=== PATIENT | female | born 1960 | race African-American/Black ===

== ENCOUNTER 2016-12-15 14:33 | Inpatient (IN) | payer OTHER ==
[2016-12-15 15:08] VITALS: BMI 23.4
--- NOTE | 2016-12-15 16:55 | HP ---
COWS - Scale Resting Pulse: 1= [place] 81-100 Sweatin=Flushed/Facial Moisture Restless Observation: 3= Extraneous Movement Pupil Size: 1= Pupils >than Normal Bone or Joint Aches: 2= Severe Diffuse Aches Runny Nose/ Eye Tearin= Runny Nose/Eyes GI Upset > 30mins: 3= Vomiting/Diarrhea Tremor Observation: 2= Slight Tremor Visible Yawning Observation: 2= >3x During Session Anxiety or Irritability: 2=Irritable/Anxious Goose Flesh Skin: 0=Smooth Skin COWS Score: 20 CIWA Score - CIWA Score Nausea/Vomitin Muscle Tremors: 3 Anxiety: 3 Agitation: 3 Paroxysmal Sweats: 2 Orientation: 0-Oriented Tacttile Disturbances: 2-Mild Itch/Numbness/Burn Auditory Disturbances: 2-Mild Harshness/Frighten Visual Disturbances: 2-Mild Sensitivity Headache: 2-Mild CIWA-Ar Total Score: 22 Admission ROS BHS - HPI Chief Complaint: i need help to stop using halina,alcohol Allergies/Adverse Reactions: Allergies Allergy/AdvReac Type Severity Reaction Status Date / Time Penicillins Allergy Severe Rash Verified 11/07/15 17:19 History of Present Illness: this 56 years old female with heroin dependence and alcohol dependence, withdrawal symptom,last detox 11/07/15 to 11/12/15 [facility] asthma cocpd nicotine dependence depression longest period of sobriety Exam Limitations: No Limitations - Ebola screening Have you traveled outside of the country in the last 21 days: No (N) Have you had contact with anyone from an Ebola affected area: No Have you been sick,other than usual withdrawal symptoms: No Do you have a fever: No - Review of Systems Constitutional: Chills, Diaphoresis, Loss of Appetite, Malaise, Night Sweats, Changes in sleep, Weakness, Unexplained wgt Loss EENT: reports: Tearing, Nose Congestion Respiratory: reports: Other (asthma.copd) Cardiac: reports: Palpitations GI: reports: Diarrhea, Nausea, Vomiting, Abdominal cramping : reports: No Symptoms Reported Musculoskeletal: reports: Back Pain, Joint Pain, Muscle Pain Integumentary: reports: Dryness Neuro: reports: Headache, Tremors Endocrine: reports: No Symptoms Reported Hematology: reports: No Symptoms Reported Psychiatric: reports: Depressed Patient History - Patient Medical History Hx Anemia: Yes Hx Asthma: Yes (on albuterol and symbicort) Hx Chronic Obstructive Pulmonary Disease (COPD): Yes Hx Cancer: No Hx Cardiac Disorders: No Hx Congestive Heart Failure: No Hx Hypertension: No Hx Hypercholesterolemia: No Hx Pacemaker: No HX Cerebrovascular Accident: No Hx Seizures: No Hx Dementia: No Hx Diabetes: No Hx Gastrointestinal Disorders: No Hx Liver Disease: No Hx Genitourinary Disorders: No Hx Sexually Transmitted Disorders: No Hx Renal Disease (ESRD): No Hx Human Immunodeficiency Virus (HIV): No Hx Hepatitis C: No Hx Depression: Yes (AND ANXIETY) Hx Suicide Attempt: No Hx Bipolar Disorder: No Hx Schizophrenia: No Other Medical History: no suicidal,no homicidal - Patient Surgical History Past Surgical History: Yes Hx Cardiac Surgery: Yes (with lens implant in 2008.2009) Other Surgical History: Multiple cyst ovary in 2004 Anesthesia Reaction: No - PPD History Previous Implant?: Yes Documented Results: Negative w/o proof Date: 11/09/15 PPD to be Administered?: Yes - Reproductive History Patient is a Female of Child Bearing Age (11 -55 yrs old): No Patient : No - Smoking Cessation Smoking history: Current every day smoker Have you smoked in the past 12 months: Yes Aproximately how many cigarettes per day: 4 Hx Chewing Tobacco Use: No Initiated information on smoking cessation: Yes 'Breaking Loose' booklet given: 12/15/16 - Substance & Tx. History Hx Alcohol Use: Yes Hx Substance Use: Yes Substance Use Type: Alcohol, Cocaine, Heroin Hx Substance Use Treatment: Yes (11/07/15 to 11/12/15 [facility]) - Substances Abused Heroin Route: Inhalation Frequency: Daily Amount used: 5 to 6bags Age of first use: 55 Date of Last Use: 12/15/16 Alcohol Route: Oral Frequency: Daily Amount used: 1pint of vodka Age of first use: 26 Date of Last Use: 12/15/16 Cocaine Route: Inhalation Frequency: 1-3 times last 30 days Amount used: 100$ Age of first use: 26 Date of Last Use: 12/15/16 Family Disease History - Family Disease History Family Disease History: Heart Disease: Mother (HAD CHF AND ), Other: Father () Admission Physical Exam BHS - Vital Signs Vital Signs: Vital Signs - 24 hr 12/15/16 15:07 Temperature 97.2 F L Pulse Rate 81 Respiratory 20 Rate Blood Pressure 147/96 - Physical General Appearance: Yes: Moderate Distress, Tremorous, Irritable, Sweating, Anxious HEENTM: Yes: Normal ENT Inspection, Pharynx Normal, Nasal Congestion, Rhinorrhea Respiratory: Yes: Lungs Clear, Normal Breath Sounds, No Respiratory Distress Neck: Yes: Within Normal Limits Breast: Yes: Breast Exam Deferred Cardiology: Yes: Within Normal Limits, Regular Rhythm, Regular Rate, S1, S2 Abdominal: Yes: Within Normal Limits, Normal Bowel Sounds, Non Tender, Flat, Soft Genitourinary: Yes: Within Normal Limits Back: Yes: Muscle Spasm Musculoskeletal: Yes: full range of Motion, Back pain, Joint Stiffness, Muscle Pain Extremities: Yes: Normal Range of Motion, Tremors 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 intact, Fully Oriented, Alert, Motor Strength 5/5 Integumentary: Yes: Dry Lymphatic: Yes: Within Normal Limits - Diagnostic (1) Asthma Current Visit: No Status: Chronic Qualifiers: Asthma severity: unspecified severity Asthma complication type: uncomplicated Qualified Code(s): J45.909 - Unspecified asthma, uncomplicated (2) Cocaine dependence Current Visit: No Status: Chronic Qualifiers: Substance use status: uncomplicated Qualified Code(s): F14.20 - Cocaine dependence, uncomplicated (3) Opioid dependence with withdrawal Current Visit: Yes Status: Acute (4) COPD (chronic obstructive pulmonary disease) Current Visit: Yes Status: Acute (5) Anxiety and depression Current Visit: No Status: Chronic Cleared for Admission S - Detox or Rehab [facility] Level of Care: Medically Managed Detox Regimen/Protocol: Methadone/Librium S Breath Alcohol Content Breath Alcohol Content: 0 Urine Pregancy Test - Result Urine Test Results: Negative- NO Line Present Urine Drug Screen - Results Drug Screen Negative: No Urine Drug Screen Results: YULY-Cocaine, OPI-Opiates, BZO-Benzodiazepines
[2016-12-15] MEDS ORDERED: diphenhydrAMINE HCL 50 MG CAPSULE PO PRN (17:21)
[2016-12-15] MEDS ORDERED: MAGNESIUM HYDROX 2400MG/30ML ORAL SUSPENSION 30 ML CUP PO PRN (17:21)
[2016-12-15] MEDS ORDERED: LOPERAMIDE HCL 2 MG CAPSULE PO PRN (17:21)
[2016-12-15] MEDS ORDERED: hydrOXYzine PAMOATE 25 MG CAPSULE (FP) PO PRN (17:21)
[2016-12-15] MEDS ORDERED: METHADONE HCL 10 MG TABLET (FOR DETOX USE ONLY) PO ONE ×2 (17:21→23:00)
[2016-12-15] MEDS ORDERED: MAGNESIUM CITRATE 300 ML BOTTLE PO PRN (17:21)
[2016-12-15] MEDS ORDERED: chlordiazePOXIDE HCL 25 MG CAPSULE PO ONE (17:21)
[2016-12-15] MEDS ORDERED: guaiFENesin/D-METHORPHAN HB 10 ML UNIT-DOSE CUPS PO PRN (17:21)
[2016-12-15] MEDS ORDERED: MENTHOL/PHENOL 1 EACH UD MM PRN (17:21)
[2016-12-15] MEDS ORDERED: P-EPHED 60MG/TRIPROLIDI 2.5MG TABLET PO PRN (17:21)
[2016-12-15] MEDS ORDERED: MAG HYDROX/AL HYDROX/SIMETH 30 ML UNIT-DOSE CUP PO PRN (17:21)
[2016-12-15] MEDS ORDERED: chlordiazePOXIDE HCL 25 MG CAPSULE ONE (19:33)
[2016-12-15] MEDS ORDERED: METHADONE HCL 10 MG TABLET (FOR DETOX USE ONLY) ONE (19:34)
[2016-12-15 22:42] LABS: URINE APPEARANCE CLEAR; URINE BILIRUBIN NEGATIVE (NEGATIVE); URINE BLOOD NEGATIVE (NEGATIVE); URINE COLOR YELLOW; URINE GLUCOSE (UA) NEGATIVE (NEGATIVE); URINE KETONE NEGATIVE (NEGATIVE); URINE NITRITE NEGATIVE (NEGATIVE); URINE PROTEIN NEGATIVE (NEGATIVE); URINE UROBILINOGEN 2.0 E.U/dl E.U./dl (0.2-1.0)
[2016-12-15 22:43] LABS: URINE LEUK ESTERASE TRACE (NEGATIVE)
[2016-12-15 22:50] LABS: URINE MUCUS RARE; URINE RBC 2 /hpf (0-3); URINE WBC 2 /hpf (3-5)
[2016-12-15] MEDS: THIAMINE HCL 100 MG TABLET (FP) PO SCH (22:56)
[2016-12-15] MEDS: chlordiazePOXIDE HCL 25 MG CAPSULE PO SCH (22:57)
[2016-12-16] MEDS: BUDESONIDE/FORMETEROL FUMARATE 160/4.5 mcg INHALER IH SCH ×3 (01:42→22:35)
[2016-12-16] MEDS: chlordiazePOXIDE HCL 25 MG CAPSULE PO SCH ×4 (04:19→22:35)
[2016-12-16] MEDS: ALBUTEROL SO4 6.7 GM HFA INHALER IH PRN (04:21)
[2016-12-16] MEDS: IBUPROFEN 400 MG TABLET (FP) PO PRN (09:48)
[2016-12-16] MEDS ORDERED: METHADONE HCL 10 MG TABLET (FOR DETOX USE ONLY) PO SCH (10:00)
[2016-12-16 10:27] LABS: ALBUMIN 3.3 g/dl (3.4-5.0); CALCIUM 8.9 mg/dL (8.5-10.1)
[2016-12-16 10:29] LABS: BILIRUBIN,TOTAL 0.3 mg/dL (0.2-1.0); TOT PROT 6.1 g/dl (6.4-8.2)
[2016-12-16 10:33] LABS: MCH 29.3 pg (25.7-33.7); MCHC 32.5 g/dl (32.0-36.0); MEAN CELL VOLUME 90.3 fl (80-96); MEAN PLT VOLUME 10.7 fl (7.5-11.1); PLATELET COUNT 105 K/MM3 (134-434); RDW 15.1 % (11.6-15.6); WHITE BLOOD COUNT 5.5 K/mm3 (4.0-10.0)
[2016-12-16] MEDS: PRENATAL VITAMINS W/ FOLIC ACID TABLET (FP) PO SCH (11:03)
--- NOTE | 2016-12-16 13:37 | PN ---
S CIWA - CIWA Score Nausea/Vomitin Muscle Tremors: 3 Anxiety: 3 Agitation: 3 Paroxysmal Sweats: 1-Minimal Palms Moist Orientation: 1-Uncertain about Date Tacttile Disturbances: 1-Very Mild Itch/Numbness Auditory Disturbances: 1-Very Mild Visual Disturbances: 1-Very Mild Sensitivity Headache: 2-Mild CIWA-Ar Total Score: 19 BHS COWS - Scale Resting Pulse: 0= [place] 80 or Below Sweatin=Flushed/Facial Moisture Restless Observation: 3= Extraneous Movement Pupil Size: 1= Pupils >than Normal Bone or Joint Aches: 2= Severe Diffuse Aches Runny Nose/ Eye Tearin= Runny Nose/Eyes GI Upset > 30mins: 3= Vomiting/Diarrhea Tremor Observation of Outstretched Hands: 2= Slight Tremor Visible Yawning Observation: 1= 1-2x During Session Anxiety or Irritability: 2=Irritable/Anxious Goose Flesh Skin: 0=Smooth Skin COWS Score: 18 S Progress Note (SOAP) Subjective: ALERT,IRRIABLE,ANXIOUS,INTERRUPTED SLEEP,TREMOR,PIN IN THE BODY AND BACK Objective: 12/16/16 13:36 12/16/16 13:42 Vital Signs Temperature 98.1 F 12/16/16 10:54 Pulse Rate 76 12/16/16 10:54 Respiratory Rate 18 12/16/16 10:54 Blood Pressure 102/59 12/16/16 10:54 O2 Sat by Pulse Oximetry (%) EKG NSR Assessment: 12/16/16 13:43 Laboratory Last Values WBC 5.5 K/mm3 (4.0-10.0) 12/16/16 07:45 RBC 4.02 M/mm3 (3.60-5.2) 12/16/16 07:45 Hgb 11.8 GM/dL (10.7-15.3) 12/16/16 07:45 Hct 36.3 % (32.4-45.2) 12/16/16 07:45 MCV 90.3 fl (80-96) 12/16/16 07:45 MCHC 32.5 g/dl (32.0-36.0) 12/16/16 07:45 RDW 15.1 % (11.6-15.6) 12/16/16 07:45 Plt Count 105 K/MM3 (134-434) L 12/16/16 07:45 MPV 10.7 fl (7.5-11.1) 12/16/16 07:45 Sodium 141 mmol/L (136-145) 12/16/16 07:45 Potassium 4.2 mmol/L (3.5-5.1) 12/16/16 07:45 Chloride 103 mmol/L (98-107) 12/16/16 07:45 Carbon Dioxide 30 mmol/L (21-32) 12/16/16 07:45 Anion Gap 8 (8-16) 12/16/16 07:45 BUN 12 mg/dL (7-18) D 12/16/16 07:45 Creatinine 1.0 mg/dL (0.55-1.02) 12/16/16 07:45 Creat Clearance w eGFR 57.56 (>60) 12/16/16 07:45 Random Glucose 103 mg/dL (74-106) D 12/16/16 07:45 Calcium 8.9 mg/dL (8.5-10.1) 12/16/16 07:45 Total Bilirubin 0.3 mg/dL (0.2-1.0) D 12/16/16 07:45 AST 37 U/L (15-37) D 12/16/16 07:45 ALT 28 U/L (12-78) D 12/16/16 07:45 Alkaline Phosphatase 89 U/L (45-117) D 12/16/16 07:45 Total Protein 6.1 g/dl (6.4-8.2) L 12/16/16 07:45 Albumin 3.3 g/dl (3.4-5.0) L 12/16/16 07:45 Urine Color Yellow 12/15/16 22:30 Urine Appearance Clear 12/15/16 22:30 Urine pH 6.0 (5.0-8.0) 12/15/16 22:30 Ur Specific [place] 1.027 (1.001-1.035) 12/15/16 22:30 Urine Protein Negative (NEGATIVE) 12/15/16 22:30 Urine Glucose (UA) Negative (NEGATIVE) 12/15/16 22:30 Urine Ketones Negative (NEGATIVE) 12/15/16 22:30 Urine Blood Negative (NEGATIVE) 12/15/16 22:30 Urine Nitrite Negative (NEGATIVE) 12/15/16 22:30 Urine Bilirubin Negative (NEGATIVE) 12/15/16 22:30 Urine Urobilinogen 2.0 e.u/dl E.U./dl (0.2-1.0) H 12/15/16 22:30 Ur Leukocyte Esterase Trace (NEGATIVE) H D 12/15/16 22:30 Urine RBC 2 /hpf (0-3) 12/15/16 22:30 Urine WBC 2 /hpf (3-5) 12/15/16 22:30 Ur Epithelial Cells Rare /hpf (FEW) 12/15/16 22:30 Urine Mucus Rare 12/15/16 22:30 RPR Titer Nonreactive (NONREACTIVE) 12/16/16 07:45 12/16/16 13:43 12/16/16 13:43 WITHDRAWAL SYMPTOM Plan: CONTINUE DETOX
[2016-12-16] MEDS: LIDOCAINE 5% TOPICAL PATCH TP SCH (14:20)
[2016-12-16] MEDS: ACETAMINOPHEN 325 MG TABLET (FP) PO PRN (14:20)
[2016-12-16] MEDS: THIAMINE HCL 100 MG TABLET (FP) PO SCH (22:34)
[2016-12-16] MEDS: CYCLOBENZAPRINE HCL 10 MG TABLET (FP) PO PRN (22:34)
[2016-12-17] MEDS: chlordiazePOXIDE HCL 25 MG CAPSULE PO SCH ×3 (05:52→17:16)
[2016-12-17] MEDS: PRENATAL VITAMINS W/ FOLIC ACID TABLET (FP) PO SCH (10:25)
[2016-12-17] MEDS: METHADONE HCL 5 MG TABLET (FOR DETOX USE ONLY) PO SCH (10:25)
[2016-12-17] MEDS: BUDESONIDE/FORMETEROL FUMARATE 160/4.5 mcg INHALER IH SCH ×2 (10:25→22:46)
[2016-12-17] MEDS: LIDOCAINE 5% TOPICAL PATCH TP SCH (10:26)
[2016-12-17] MEDS: CYCLOBENZAPRINE HCL 10 MG TABLET (FP) PO PRN ×2 (10:28→22:46)
--- NOTE | 2016-12-17 10:56 | PN ---
[facility] CIWA - CIWA Score Nausea/Vomitin-No Nausea/No Vomiting Muscle Tremors: 4-Moderate,w/Arms Extend Anxiety: 3 Agitation: 4-Moderately Restless Paroxysmal Sweats: 3 Orientation: 0-Oriented Tacttile Disturbances: 0-None Auditory Disturbances: 0-None Visual Disturbances: 0-None Headache: 1-Very Mild CIWA-Ar Total Score: 15 BHS COWS - Scale Resting Pulse: 0= [place] 80 or Below Sweatin=Flushed/Facial Moisture Restless Observation: 1= Difficult to Sit Still Pupil Size: 0= Normal to Room Light Bone or Joint Aches: 2= Severe Diffuse Aches Runny Nose/ Eye Tearin= Runny Nose/Eyes GI Upset > 30mins: 1= Stomach Cramp Tremor Observation of Outstretched Hands: 2= Slight Tremor Visible Yawning Observation: 2= >3x During Session Anxiety or Irritability: 2=Irritable/Anxious Goose Flesh Skin: 0=Smooth Skin COWS Score: 14 S Progress Note (SOAP) Subjective: muscle cramping sweats shakes headache body aches irritable Objective: 12/17/16 10:55 Vital Signs Temperature 97.5 F L 12/17/16 06:00 Pulse Rate 61 12/17/16 06:00 Respiratory Rate 18 12/17/16 06:00 Blood Pressure 124/74 12/17/16 06:00 O2 Sat by Pulse Oximetry (%) Laboratory Tests 12/15/16 12/16/16 12/16/16 22:30 07:45 07:45 WBC 5.5 RBC 4.02 Hgb 11.8 Hct 36.3 MCV 90.3 MCHC 32.5 RDW 15.1 Plt Count 105 L MPV 10.7 Sodium 141 Potassium 4.2 Chloride 103 Carbon Dioxide 30 Anion Gap 8 BUN 12 D Creatinine 1.0 Creat Clearance w eGFR 57.56 Random Glucose 103 D Calcium 8.9 Total Bilirubin 0.3 D AST 37 D ALT 28 D Alkaline Phosphatase 89 D Total Protein 6.1 L Albumin 3.3 L Urine Color Yellow Urine Appearance Clear Urine pH 6.0 Ur Specific [place] 1.027 Urine Protein Negative Urine Glucose (UA) Negative Urine Ketones Negative Urine Blood Negative Urine Nitrite Negative Urine Bilirubin Negative Urine Urobilinogen 2.0 e.u/dl H Ur Leukocyte Esterase Trace H D Urine RBC 2 Urine WBC 2 Ur Epithelial Cells Rare Urine Mucus Rare RPR Titer 12/16/16 07:45 WBC RBC Hgb Hct MCV MCHC RDW Plt Count MPV Sodium Potassium Chloride Carbon Dioxide Anion Gap BUN Creatinine Creat Clearance w eGFR Random Glucose Calcium Total Bilirubin AST ALT Alkaline Phosphatase Total Protein Albumin Urine Color Urine Appearance Urine pH Ur Specific [place] Urine Protein Urine Glucose (UA) Urine Ketones Urine Blood Urine Nitrite Urine Bilirubin Urine Urobilinogen Ur Leukocyte Esterase Urine RBC Urine WBC Ur Epithelial Cells Urine Mucus RPR Titer Nonreactive awake/alert ambulating no acute distress Assessment: 12/17/16 10:56 withdrawal sx Plan: continue detox increase fluids labs pending
--- NOTE | 2016-12-17 12:27 | CONSULT ---
[facility] Psychiatric Consult - Data Date of interview: 12/17/16 Admission source: [facility] Identifying data: Readmission to [facility] for this 56 y/o AA female seeking detox treatment for alcohol,cocaine and heroin dependence.Patient is single without children,domiciled,unemployed and supported on [facility] benefits. Substance Abuse History: - Smoking Cessation. Smoking history: Current every day smoker. Have you smoked in the past 12 months: Yes. Aproximately how many cigarettes per day: 4. Hx Chewing Tobacco Use: No. Initiated information on smoking cessation: Yes. 'Breaking Loose' booklet given: 12/15/16. - Substance & Tx. History. Hx Alcohol Use: Yes. Hx Substance Use: Yes. Substance Use Type : Alcohol, Cocaine, Heroin. Hx Substance Use Treatment: Yes (11/07/15 to [facility]). - Substances Abused. Heroin. Route: Inhalation. Frequency: Daily. Amount used: 5 to 6bags. Age of first use: 55. Date of Last Use: 12/15. Alcohol. Route: Oral. Frequency: Daily. Amount used: 1pint of vodka. Age of first use: 26. Date of Last Use: 12/15/16. Cocaine. Route: Inhalation. Frequency: 1-3 times last 30 days. Amount used: 100$. Age of first use: 26. Date of Last Use: 12/15/16. Confirmed by patient. Medical History: Bronchial asthma,COPD and history of ophtalmic surgery (lens implant in both eyes). Psychiatric History: No history of psychiatric hospitalizations.Diagnosed with MDD.Prescribed gabapentin,citalopram and clonazepam.Ms Neal reports current outpatient contact with the [facility] in [place], [place].No history of suicide attempts. Physical/Sexual Abuse/Trauma History: Patient denies. Additional Comment: Urine Drug Screen Results: YULY-Cocaine, OPI-Opiates, BZO- Benzodiazepines.Noted. Mental Status Exam - Mental Status Exam Alert and Oriented to: Time, Place, Person Cognitive Function: Good Patient Appearance: Well Groomed (wearing eyeglasses) Mood: Nervous, Withdrawn, Anxious Affect: Normal Range Patient Behavior: Fatigued, Appropriate, Cooperative Speech Pattern: Clear, Appropriate Voice Loudness: Normal Thought Process: Goal Oriented Thought Disorder: Not Present Hallucinations: Denies Suicidal Ideation: Denies Homicidal Ideation: Denies Insight/Judgement: Poor Sleep: Fair Appetite: Good Muscle strength/Tone: Normal Gait/Station: Normal Psychiatric Findings - Problem List ([place] 1, 2,3) (1) Opioid dependence with withdrawal Current Visit: Yes Status: Acute (2) Cocaine dependence Current Visit: Yes Status: Acute Qualifiers: Substance use status: uncomplicated Qualified Code(s): F14.20 - Cocaine dependence, uncomplicated (3) Alcohol dependence Current Visit: Yes Status: Acute (4) Nicotine dependence Current Visit: Yes Status: Acute (5) Substance induced mood disorder Current Visit: Yes Status: Acute (6) Depressive disorder Current Visit: Yes Status: Suspected (7) COPD (chronic obstructive pulmonary disease) Current Visit: Yes Status: Acute (8) Asthma Current Visit: Yes Status: Chronic Qualifiers: Asthma severity: unspecified severity Asthma complication type: uncomplicated Qualified Code(s): J45.909 - Unspecified asthma, uncomplicated - Initial Treatment Plan Initial Treatment Plan: Psychoeducation.Detoxification.Medications : citalopram 10 mg po daily.Side effects/benefits discussed with the patient.She agrees to follow this plan of care.Observation.
[2016-12-17] MEDS: chlordiazePOXIDE HCL 25 MG CAPSULE PO PRN (13:40)
[2016-12-17] MEDS: IBUPROFEN 400 MG TABLET (FP) PO PRN (15:29)
[2016-12-17] MEDS: chlordiazePOXIDE 5 MG CAPSULE PO SCH (22:46)
[2016-12-17] MEDS: THIAMINE HCL 100 MG TABLET (FP) PO SCH (22:46)
[2016-12-17] MEDS: ACETAMINOPHEN 325 MG TABLET (FP) PO PRN (22:50)
[2016-12-18] MEDS: chlordiazePOXIDE HCL 25 MG CAPSULE PO PRN (01:12)
[2016-12-18] MEDS: IBUPROFEN 400 MG TABLET (FP) PO PRN ×2 (01:12→14:38)
[2016-12-18] MEDS: chlordiazePOXIDE 5 MG CAPSULE PO SCH ×3 (05:52→17:05)
[2016-12-18] MEDS: ALBUTEROL SO4 6.7 GM HFA INHALER IH PRN (05:57)
[2016-12-18] MEDS ORDERED: CITALOPRAM HYDROBROMIDE 10 MG TABLET (FP) PO SCH (10:00)
[2016-12-18] MEDS: LIDOCAINE 5% TOPICAL PATCH TP SCH (10:20)
[2016-12-18] MEDS: BUDESONIDE/FORMETEROL FUMARATE 160/4.5 mcg INHALER IH SCH ×2 (10:20→22:20)
[2016-12-18] MEDS: CITALOPRAM HYDROBROMIDE 10 MG TABLET (FP) PO SCH (10:20)
[2016-12-18] MEDS: PRENATAL VITAMINS W/ FOLIC ACID TABLET (FP) PO SCH (10:20)
[2016-12-18] MEDS: METHADONE HCL 5 MG TABLET (FOR DETOX USE ONLY) PO SCH (10:20)
--- NOTE | 2016-12-18 11:14 | PN ---
BHS Progress Note (SOAP) Subjective: tired , sweats lbp-rt leg pain Assessment: 12/18/16 11:13 Vital Signs Temperature 96.8 F L 12/18/16 10:56 Pulse Rate 73 12/18/16 10:56 Respiratory Rate 18 12/18/16 10:56 Blood Pressure 111/72 12/18/16 10:56 O2 Sat by Pulse Oximetry (%) Laboratory Tests 12/15/16 12/16/16 12/16/16 22:30 07:45 07:45 WBC 5.5 RBC 4.02 Hgb 11.8 Hct 36.3 MCV 90.3 MCHC 32.5 RDW 15.1 Plt Count 105 L MPV 10.7 Sodium 141 Potassium 4.2 Chloride 103 Carbon Dioxide 30 Anion Gap 8 BUN 12 D Creatinine 1.0 Creat Clearance w eGFR 57.56 Random Glucose 103 D Calcium 8.9 Total Bilirubin 0.3 D AST 37 D ALT 28 D Alkaline Phosphatase 89 D Total Protein 6.1 L Albumin 3.3 L Urine Color Yellow Urine Appearance Clear Urine pH 6.0 Ur Specific [place] 1.027 Urine Protein Negative Urine Glucose (UA) Negative Urine Ketones Negative Urine Blood Negative Urine Nitrite Negative Urine Bilirubin Negative Urine Urobilinogen 2.0 e.u/dl H Ur Leukocyte Esterase Trace H D Urine RBC 2 Urine WBC 2 Ur Epithelial Cells Rare Urine Mucus Rare RPR Titer 12/16/16 07:45 WBC RBC Hgb Hct MCV MCHC RDW Plt Count MPV Sodium Potassium Chloride Carbon Dioxide Anion Gap BUN Creatinine Creat Clearance w eGFR Random Glucose Calcium Total Bilirubin AST ALT Alkaline Phosphatase Total Protein Albumin Urine Color Urine Appearance Urine pH Ur Specific [place] Urine Protein Urine Glucose (UA) Urine Ketones Urine Blood Urine Nitrite Urine Bilirubin Urine Urobilinogen Ur Leukocyte Esterase Urine RBC Urine WBC Ur Epithelial Cells Urine Mucus RPR Titer Nonreactive pt aox3 in nad lying in bed 12/18/16 11:13 withdrawal sx's Plan: cont. detox increase fluids motrin prn
[2016-12-18] MEDS: CYCLOBENZAPRINE HCL 10 MG TABLET (FP) PO PRN (14:38)
[2016-12-18] MEDS: THIAMINE HCL 100 MG TABLET (FP) PO SCH (22:21)
[2016-12-18] MEDS: chlordiazePOXIDE HCL 10 MG CAPSULE PO SCH (22:22)
--- NOTE | 2016-12-18 23:40 | EKG ---
Test Reason : Blood Pressure : / mmHG Vent. Rate : 093 BPM Atrial Rate : 093 BPM P-R Int : 144 ms QRS Dur : 086 ms QT Int : 374 ms P-R-T Axes : 065 043 024 degrees QTc Int : 465 ms NORMAL SINUS RHYTHM POSSIBLE LEFT ATRIAL ENLARGEMENT BORDERLINE ECG NO PREVIOUS ECGS AVAILABLE Confirmed by DARON LEMUS, MATHIEU ([id number]) on 12/18/2016 11:39:41 PM Referred By: Confirmed By:MATHIEU NERI MD
[2016-12-19] MEDS: chlordiazePOXIDE HCL 10 MG CAPSULE PO SCH ×2 (05:35→10:35)
[2016-12-19] MEDS ORDERED: METHADONE HCL 10 MG TABLET (FOR DETOX USE ONLY) PO SCH (10:00)
[2016-12-19 10:03] VITALS: BP 117/72; PULSE 79; TEMP 98.1
[2016-12-19] MEDS: CITALOPRAM HYDROBROMIDE 10 MG TABLET (FP) PO SCH (10:35)
[2016-12-19] MEDS: BUDESONIDE/FORMETEROL FUMARATE 160/4.5 mcg INHALER IH SCH (10:35)
[2016-12-19] MEDS: PRENATAL VITAMINS W/ FOLIC ACID TABLET (FP) PO SCH (10:35)
[2016-12-19] MEDS: LIDOCAINE 5% TOPICAL PATCH TP SCH (10:37)
--- NOTE | 2016-12-19 11:08 | DS ---
[facility] Detox Discharge Summary Admission Date: 12/15/16 Discharge Date: 12/19/16 - History Present History: Alcohol Dependence, Cannabis Dependence, Cocaine Dependence, Opioid Dependence - Physical Exam Results Vital Signs: Vital Signs Temperature 98.1 F 12/19/16 10:03 Pulse Rate 79 12/19/16 10:03 Respiratory Rate 18 12/19/16 10:03 Blood Pressure 117/72 12/19/16 10:03 O2 Sat by Pulse Oximetry (%) - Treatment Hospital Course: Detox Protocol Followed, Detoxed Safely, Responded well, Discharged Condition Good, Rehab Referral Accepted - Medication Discharge Medications: Ambulatory Orders Albuterol Sulfate Inhaler - [Ventolin Hfa Inhaler -] 2 inh PO Q4H PRN 11/07/15 Citalopram Hydrobromide [Citalopram HBr] 10 mg PO DAILY #30 tablet 12/17/16 - Diagnosis (1) Alcohol dependence Current Visit: Yes Status: Chronic Qualifiers: Substance use status: uncomplicated Qualified Code(s): F10.20 - Alcohol dependence, uncomplicated (2) COPD (chronic obstructive pulmonary disease) Current Visit: Yes Status: Chronic (3) Cocaine dependence Current Visit: Yes Status: Chronic Qualifiers: Substance use status: uncomplicated Qualified Code(s): F14.20 - Cocaine dependence, uncomplicated (4) Nicotine dependence Current Visit: Yes Status: Chronic Qualifiers: Nicotine product type: cigarettes Substance use status: uncomplicated Qualified Code(s): F17.210 - Nicotine dependence, cigarettes, uncomplicated (5) Opioid dependence with withdrawal Current Visit: Yes Status: Chronic (6) Substance induced mood disorder Current Visit: Yes Status: Acute (7) Asthma Current Visit: Yes Status: Chronic Qualifiers: Asthma severity: unspecified severity Asthma complication type: uncomplicated Qualified Code(s): J45.909 - Unspecified asthma, uncomplicated (8) Depressive disorder Current Visit: Yes Status: Suspected (9) Substance-induced anxiety disorder Current Visit: No Status: Acute (10) Substance-induced sleep disorder Current Visit: No Status: Acute (11) Anxiety and depression Current Visit: No Status: Chronic (12) Cannabis dependence Current Visit: Yes Status: Chronic - AMA Did Patient Leave Against Medical Advice: No
[2016-12-20] MEDS ORDERED: METHADONE HCL 5 MG TABLET (FOR DETOX USE ONLY) PO SCH (06:00)
== END 2016-12-19 11:40 | disposition home or self-care (01) | DRG 773 ==
LOC: YASAS 14:33 → Y6N 17:38
PROVIDERS: ADMIT Internal Medicine; ATTEND Internal Medicine Addiction Medicine
PROC: HZ2ZZZZ Detoxification Services for Substance Abuse Treatment (ICD-10-PCS; principal; 2016-12-15)
DX: F11.23 Opioid dependence with withdrawal (principal); F10.230 Alcohol dependence with withdrawal, uncomplicated; F14.20 Cocaine dependence, uncomplicated; F12.20 Cannabis dependence, uncomplicated; F17.210 Nicotine dependence, cigarettes, uncomplicated; F19.24 Other psychoactive substance dependence with psychoactive substance-induced mood disorder; F19.282 Other psychoactive substance dependence with psychoactive substance-induced sleep disorder; F19.280 Other psychoactive substance dependence with psychoactive substance-induced anxiety disorder; F32.9 Major depressive disorder, single episode, unspecified; F41.8 Other specified anxiety disorders; J45.909 Unspecified asthma, uncomplicated; J44.9 Chronic obstructive pulmonary disease, unspecified; Z86.2 Personal history of diseases of the blood and blood-forming organs and certain disorders involving the immune mechanism
CPT/HCPCS: 36415; 80053; 81003; 81015; 85027; 86593; 93005; 93010

== ENCOUNTER 2019-10-09 10:27 | Inpatient (IN) | payer OTHER ==
[2019-10-09 10:49] VITALS: BMI 25.2
--- NOTE | 2019-10-09 11:17 | HP ---
"COWS - Scale Resting Pulse: 1= MS 81-100 Sweatin=Flushed/Facial Moisture Restless Observation: 5= Unable to Sit Still Pupil Size: 0= Normal to Room Light Bone or Joint Aches: 2= Severe Diffuse Aches Runny Nose/ Eye Tearin= Runny Nose/Eyes GI Upset > 30mins: 0= None Tremor Observation: 0= None Yawning Observation: 0= None Anxiety or Irritability: 2=Irritable/Anxious Goose Flesh Skin: 0=Smooth Skin COWS Score: 14 CIWA Score - Admission Criteria OASAS Guidelines: Admission for Medically Managed Detox: Requires at least one of the followin. CIWA greater than 12 2. Seizures within the past 24 hours 3. Delirium tremens within the past 24 hours 4. Hallucinations within the past 24 hours 5. Acute intervention needed for co occurring medical disorder 6. Acute intervention needed for co occurring psychiatric disorder 7. Severe withdrawal that cannot be handled at a lower level of care (continued vomiting, continued diarrhea, abnormal vital signs) requiring intravenous medication and/or fluids 8. Admitting History and Physical - Smoking History Smoking history: Current every day smoker Have you smoked in the past 12 months: Yes Aproximately how many cigarettes per day: 4 - Alcohol/Substance Use Hx Alcohol Use: Yes Admission ROS S - HPI Allergies/Adverse Reactions: Allergies Allergy/AdvReac Type Severity Reaction Status Date / Time Penicillins Allergy Severe Rash Verified 10/09/19 10:37 History of Present Illness: 59 y.o female requesting detox from heroin etoh use heroin 3-4 bags/day , latest use this morning , illicit Methadone use 10 mg yesterday , use of heroin x 3 years . etoh 4 days /week - 7 days /week 1/2 pint, reports anxiety if not drinking , denies seizures, blackouts, tremors. cocaine - latest use on Saturday cannabis- occasional use tobacco : 3 cigs/day PMHX : ASthma / COPD , expl lap , sarah eye implants, R CTS , depression denies SI / [place] no children shx lives alone Search Terms: alvaro lester, 1960 Search Date: 10/09/2019 11:44:23 AM The Drug Utilization Report below displays all of the controlled substance prescriptions, if any, that your patient has filled in the last twelve months. The information displayed on this report is compiled from pharmacy submissions to the Department, and accurately reflects the information as submitted by the pharmacies. This report was requested by: Di Ford | Reference #: [id number] There are no results for the search terms that you entered. Exam Limitations: Clinical Condition - Ebola screening Have you traveled outside of the country in the last 21 days: No Have you had contact with anyone from an Ebola affected area: No Do you have a fever: No - Review of Systems Constitutional: Loss of Appetite EENT: reports: See HPI, Other (glasses bifocals) Respiratory: reports: See HPI (asthma - hosp February / March) Cardiac: reports: No Symptoms Reported GI: reports: Diarrhea, Nausea, Poor Appetite : reports: No Symptoms Reported Musculoskeletal: reports: See HPI Integumentary: reports: No Symptoms Reported Neuro: reports: Headache Endocrine: reports: No Symptoms Reported Hematology: reports: No Symptoms Reported Psychiatric: reports: Orientated x3, Agitated, Anxious, Depressed Patient History - Patient Medical History Hx Anemia: Yes Hx Asthma: Yes (on albuterol and symbicort) Hx Chronic Obstructive Pulmonary Disease (COPD): Yes Hx Cancer: No Hx Cardiac Disorders: No Hx Congestive Heart Failure: No Hx Hypertension: No Hx Hypercholesterolemia: No Hx Pacemaker: No HX Cerebrovascular Accident: No Hx Seizures: No Hx Dementia: No Hx Diabetes: No Hx Gastrointestinal Disorders: No Hx Liver Disease: No Hx Genitourinary Disorders: No Hx Sexually Transmitted Disorders: No Hx Renal Disease (ESRD): No Hx Human Immunodeficiency Virus (HIV): No Hx Hepatitis C: No Hx Depression: Yes (AND ANXIETY) Hx Suicide Attempt: No Hx Bipolar Disorder: No Hx Schizophrenia: No - Patient Surgical History Past Surgical History: Yes Hx Neurologic Surgery: No Hx Cataract Extraction: No Hx Cardiac Surgery: Yes (with lens implant in 2008.2009) Hx Lung Surgery: No Hx Breast Surgery: No Hx Breast Biopsy: No Hx Abdominal Surgery: No Hx Appendectomy: No Hx Cholecystectomy: No Hx Genitourinary Surgery: No Hx Section: No Hx Orthopedic Surgery: No Other Surgical History: Multiple cyst ovary in 2004 Anesthesia Reaction: No - PPD History Date: 12/17/16 - Smoking Cessation Smoking history: Current every day smoker Have you smoked in the past 12 months: Yes Aproximately how many cigarettes per day: 4 Hx Chewing Tobacco Use: No Initiated information on smoking cessation: Yes 'Breaking Loose' booklet given: 10/09/19 - Substances abused Alcohol Substance route: Oral Frequency: Daily Amount used: 1 pint of vodka Age of first use: 24 Date of last use: 10/09/19 Heroin Substance route: Inhalation Frequency: Daily Amount used: 3-4 bags Age of first use: 57 Date of last use: 10/08/19 Cocaine Substance route: Inhalation Frequency: 3-6 times per week Amount used: 1 gram Age of first use: 21 Date of last use: 10/06/19 Admission Physical Exam BHS - Vital Signs Vital Signs: Vital Signs - 24 hr 10/09/19 10:36 Temperature 98.5 F Pulse Rate 95 H Respiratory 20 Rate Blood Pressure 142/80 - Physical General Appearance: Yes: Moderate Distress, Irritable, Sweating, Anxious HEENTM: Yes: EOMI, Hearing grossly Normal, Normocephalic, Normal Voice Respiratory: Yes: Chest Non-Tender, Lungs Clear, Normal Breath Sounds, No Respiratory Distress, No Accessory Muscle Use Neck: Yes: No masses,lesions,Nodules, Trachea in good position Cardiology: Yes: Regular Rhythm, Regular Rate, S1, S2, Tachycardia, Other (QTc 465 ms 12/15/2016 per pt has seen cardiology August 2019 , and was told to continue current meds .) Abdominal: Yes: Non Tender, Soft Musculoskeletal: Yes: full range of Motion, Gait Steady Extremities: Yes: Normal Range of Motion, Non-Tender Neurological: Yes: Fully Oriented, Alert, Motor Strength 5/5, Depressed Affect Integumentary: Yes: Warm - Diagnostic (1) Nicotine dependence Current Visit: Yes Status: Chronic Qualifiers: Nicotine product type: cigarettes Substance use status: uncomplicated Qualified Code(s): F17.210 - Nicotine dependence, cigarettes, uncomplicated (2) Opioid dependence with withdrawal Current Visit: Yes Status: Chronic Breathalyzer - Breathalyzer Breathalyzer: 0.018 Urine Drug Screen - Test Device Lot number: [id number] Expiration date: 04/15/21 - Control Is test valid?: Yes - Results Drug screen NEGATIVE: No Urine drug screen results: THC-Marijuana, MTD-Methadone Inpatient Rehab Admission - Rehab Decision to Admit Inpatient rehab admission?: No"
[2019-10-09] MEDS ORDERED: GABAPENTIN 400 MG CAPSULE PO PRN (11:27)
[2019-10-09] MEDS ORDERED: ALBUTEROL SO4 HFA INHALER IH PRN (11:27)
[2019-10-09] MEDS ORDERED: ACETAMINOPHEN 325 MG TABLET (FP) PO PRN ×2 (11:33)
[2019-10-09] MEDS ORDERED: MAGNESIUM CITRATE 300 ML BOTTLE PO PRN (11:33)
[2019-10-09] MEDS ORDERED: MAG HYDROX/AL HYDROX/SIMETH 30 ML UNIT-DOSE CUP PO PRN (11:33)
[2019-10-09] MEDS ORDERED: METHOCARBAMOL 500 MG TABLET PO PRN (11:33)
[2019-10-09] MEDS ORDERED: MAGNESIUM HYDROX 2400MG/30ML ORAL SUSPENSION 30 ML CUP PO PRN (11:33)
[2019-10-09] MEDS ORDERED: MENTHOL/PHENOL 1 EACH UD MM PRN (11:33)
[2019-10-09] MEDS ORDERED: BISMUTH SUBSALICYLATE 262 MG/15 ML BTL PO PRN (11:33)
[2019-10-09] MEDS ORDERED: IBUPROFEN 400 MG TABLET (FP) PO PRN (11:33)
[2019-10-09] MEDS ORDERED: hydrOXYzine PAMOATE 25 MG CAPSULE (FP) PO PRN (11:33)
[2019-10-09] MEDS ORDERED: cloNIDine HCL 0.1 MG TABLET PO PRN (11:35)
[2019-10-09] MEDS ORDERED: ALBUTEROL SO4 0.083% IH SOL 2.5 MG/3 ML VIAL.NEB. NEB PRN (11:45)
[2019-10-09] MEDS ORDERED: METHADONE HCL 10 MG TABLET (FOR DETOX USE ONLY) PO ONE (12:30)
[2019-10-09] MEDS ORDERED: diazePAM 5 MG TABLET PO ONE (12:31)
[2019-10-09] MEDS: NICOTINE 7 MG/24 HOURS TOPICAL PATCH TD SCH (12:59)
[2019-10-09] MEDS ORDERED: diazePAM 5 MG TABLET PO SCH (14:00)
[2019-10-09 14:27] LABS: HEMATOCRIT 41.2 % (32.4-45.2); HEMOGLOBIN 13.5 GM/dL (10.7-15.3); MCH 30.4 pg (25.7-33.7); MCHC 32.9 g/dl (32.0-36.0); MEAN CELL VOLUME 92.5 fl (80-96); MEAN PLT VOLUME 10.3 fl (7.5-11.1); PLATELET COUNT 160 K/MM3 (134-434); RBC 4.45 M/mm3 (3.60-5.2); WHITE BLOOD COUNT 5.2 K/mm3 (4.0-10.0)
[2019-10-09 15:26] LABS: ALBUMIN 4.2 g/dl (3.4-5.0); BILIRUBIN,TOTAL 0.3 mg/dL (0.2-1); CALCIUM 9.4 mg/dL (8.5-10.1); POTASSIUM 3.4 mmol/L (3.5-5.1); TOT PROT 7.4 g/dl (6.4-8.2)
[2019-10-09] MEDS: ROSUVASTATIN CA 20 MG TABLET (FP) PO SCH (21:02)
[2019-10-09] MEDS: BUDESONIDE/FORMETEROL FUMARATE 160/4.5 mcg INHALER IH SCH (21:03)
[2019-10-09] MEDS: THIAMINE HCL 100 MG TABLET (FP) PO SCH (21:03)
[2019-10-09] MEDS: diazePAM 5 MG TABLET PO SCH (21:03)
[2019-10-09] MEDS: MELATONIN 5 MG TABLETS PO PRN (21:04)
[2019-10-10] MEDS: diazePAM 5 MG TABLET PO PRN ×2 (02:36→18:25)
[2019-10-10] MEDS: diazePAM 5 MG TABLET PO SCH ×3 (05:42→22:47)
[2019-10-10] MEDS ORDERED: METHADONE HCL 5 MG TABLET (FOR DETOX USE ONLY) PO ONE (10:00)
[2019-10-10] MEDS: ASPIRIN 81 MG CHEWABLE TABLETS PO SCH (10:14)
[2019-10-10] MEDS: PRENATAL VITAMINS W/ FOLIC ACID TABLET (FP) PO SCH (10:14)
[2019-10-10] MEDS: BUDESONIDE/FORMETEROL FUMARATE 160/4.5 mcg INHALER IH SCH ×2 (10:15→22:51)
[2019-10-10] MEDS: NICOTINE 7 MG/24 HOURS TOPICAL PATCH TD SCH (10:15)
[2019-10-10] MEDS: TIOTROPIUM BROMIDE 2.5 MCG (SPIRIVA) RESPIMAT INHALER IH SCH (10:15)
--- NOTE | 2019-10-10 10:16 | CONSULT ---
[facility] Psychiatric Consult - Data Date of interview: 10/10/19 Admission source: [facility] Identifying data: Patient is a 59 year old female, without children, unemployed, domiciled, and is supported by public assistance. This is one of multiple admissions for patient. Patient admitted to for alcohol, cocaine, and opiate dependence. Substance Abuse History: Smoking Cessation. Smoking history: Current every day smoker. Have you smoked in the past 12 months: Yes. Aproximately how many cigarettes per day: 4. Hx Chewing Tobacco Use: No. Initiated information on smoking cessation: Yes. 'Breaking Loose' booklet given: 10/09/19. - Substances abused. Alcohol. Substance route: Oral. Frequency: Daily. Amount used: 1 pint of vodka. Age of first use: 24. Date of last use: . Heroin. Substance route: Inhalation. Frequency: Daily. Amount used: 3 -4 bags. Age of first use: 57. Date of last use: 10/08/19. Cocaine. Substance route: Inhalation. Frequency: 3-6 times per week. Amount used: 1 gram. Age of first use: 21. Date of last use: 10/06/19 Medical History: ASthma / COPD , expl lap , sarah eye implants Psychiatric History: Patient denies history of psychiatric hospitalizations and suicide attempt. Patient has been receiving outpatient psychiatric care for three years at the [facility] in [place]. She is currently prescribed Celexa 20mg HS + Buspar 30mg BID. Patient brought her medications to facility. Diagnosis of MDD and Anxiety disorder. At present she reports difficulty sleeping. Physical/Sexual Abuse/Trauma History: denies. Mental Status Exam - Mental Status Exam Alert and Oriented to: Time, Place, Person Cognitive Function: Good Patient Appearance: Well Groomed Mood: Euthymic Affect: Appropriate Patient Behavior: Appropriate, Cooperative Speech Pattern: Appropriate Voice Loudness: Normal Thought Process: Intact, Goal Oriented Thought Disorder: Not Present Hallucinations: Denies Suicidal Ideation: Denies Homicidal Ideation: Denies Insight/Judgement: Poor Sleep: Poorly Appetite: Fair Muscle strength/Tone: Normal Gait/Station: Normal Psychiatric Findings - Problem List ([place] 1, 2,3) (1) Opioid dependence with withdrawal Current Visit: Yes Status: Acute (2) Alcohol dependence Current Visit: Yes Status: Chronic Qualifiers: Substance use status: uncomplicated Qualified Code(s): F10.20 - Alcohol dependence, uncomplicated (3) Anxiety disorder Current Visit: Yes Status: Acute (4) Substance induced mood disorder Current Visit: Yes Status: Acute (5) Depressive disorder Current Visit: Yes Status: Chronic - Initial Treatment Plan Initial Treatment Plan: Psychoeducation provided. Detoxification in progress. Will order Celexa 20 +buspar 30mg BID. Benefits and side effects discussed. Verbal consent given.
[2019-10-10] MEDS: LIDOCAINE 5% TOPICAL PATCH TP SCH (12:39)
--- NOTE | 2019-10-10 17:30 | PN ---
BHS COWS - Scale Resting Pulse: 1= [place] 81-100 Sweatin= Chills/Flushing Restless Observation: 1= Difficult to Sit Still Pupil Size: 0= Normal to Room Light Bone or Joint Aches: 0= None Runny Nose/ Eye Tearin= Nasal Congestion GI Upset > 30mins: 0= None Tremor Observation of Outstretched Hands: 2= Slight Tremor Visible Yawning Observation: 1= 1-2x During Session Anxiety or Irritability: 2=Irritable/Anxious Goose Flesh Skin: 0=Smooth Skin COWS Score: 9 BHS Progress Note (SOAP) Subjective: Anxious, Body Aches, Sweating, Insomnia. Objective: PATIENT A & O X 3, OBSERVED AMBULATING ON DETOX UNIT UNASSISTED. IN NO ACUTE DISTRESS. 10/10/19 17:31 Vital Signs Temperature 98.4 F 10/10/19 10:00 Pulse Rate 84 10/10/19 10:00 Respiratory Rate 18 10/10/19 10:00 Blood Pressure 128/93 10/10/19 10:00 O2 Sat by Pulse Oximetry (%) Laboratory Tests 10/09/19 10/09/19 10/09/19 12:05 12:05 12:05 WBC 5.2 RBC 4.45 Hgb 13.5 Hct 41.2 MCV 92.5 MCH 30.4 MCHC 32.9 RDW 14.0 Plt Count 160 D MPV 10.3 Sodium 143 Potassium 3.4 L Chloride 111 H Carbon Dioxide 19 L Anion Gap 14 BUN 17.0 Creatinine 1.0 Est GFR (CKD-EPI)AfAm 71.92 Est GFR (CKD-EPI)NonAf 62.05 Random Glucose 105 Calcium 9.4 Total Bilirubin 0.3 AST 15 ALT 26 Alkaline Phosphatase 97 Total Protein 7.4 Albumin 4.2 RPR Titer Nonreactive LABS NOTED. Assessment: 10/10/19 17:32 WITHDRAWAL SYMPTOMS. HYPOKALEMIA. Plan: CONTINUE DETOX. K-DUR, 20 MEQ ORALLY BID FOR LOW K LEVEL NOTED ON DETOX ADMISSION LABORATORY ASSESSMENT.
[2019-10-10] MEDS: POTASSIUM CHLORIDE TABS 20 MEQ TABLET.ER (FP) PO SCH (18:21)
[2019-10-10] MEDS: ROSUVASTATIN CA 20 MG TABLET (FP) PO SCH (22:47)
[2019-10-10] MEDS: CITALOPRAM HYDROBROMIDE 20 MG TABLET PO SCH (22:48)
[2019-10-10] MEDS: THIAMINE HCL 100 MG TABLET (FP) PO SCH (22:48)
[2019-10-10] MEDS: LIDOCAINE PATCH REMOVAL MC SCH (22:49)
[2019-10-10] MEDS: MELATONIN 5 MG TABLETS PO PRN (22:50)
[2019-10-11] MEDS: diazePAM 5 MG TABLET PO SCH ×2 (05:59→17:08)
[2019-10-11] MEDS ORDERED: diazePAM 5 MG TABLET PO SCH (06:00)
[2019-10-11] MEDS: POTASSIUM CHLORIDE TABS 20 MEQ TABLET.ER (FP) PO SCH ×2 (09:32→17:08)
[2019-10-11] MEDS: ASPIRIN 81 MG CHEWABLE TABLETS PO SCH (09:33)
[2019-10-11] MEDS: LIDOCAINE 5% TOPICAL PATCH TP SCH (09:34)
[2019-10-11] MEDS ORDERED: METHADONE HCL 10 MG TABLET (FOR DETOX USE ONLY) PO ONE (10:00)
[2019-10-11] MEDS: PRENATAL VITAMINS W/ FOLIC ACID TABLET (FP) PO SCH (10:36)
[2019-10-11] MEDS: TIOTROPIUM BROMIDE 2.5 MCG (SPIRIVA) RESPIMAT INHALER IH SCH (10:36)
[2019-10-11] MEDS: NICOTINE 7 MG/24 HOURS TOPICAL PATCH TD SCH (10:36)
[2019-10-11] MEDS: BUDESONIDE/FORMETEROL FUMARATE 160/4.5 mcg INHALER IH SCH ×2 (10:36→22:11)
--- NOTE | 2019-10-11 17:33 | PN ---
BHS COWS - Scale Resting Pulse: 1= NM 81-100 Sweatin= Chills/Flushing Restless Observation: 0= Sits Still Pupil Size: 0= Normal to Room Light Bone or Joint Aches: 0= None Runny Nose/ Eye Tearin= Runny Nose/Eyes GI Upset > 30mins: 1= Stomach Cramp Tremor Observation of Outstretched Hands: 0= None Yawning Observation: 0= None Anxiety or Irritability: 1=Feels Anxious/Irritable Goose Flesh Skin: 0=Smooth Skin COWS Score: 6 BHS Progress Note (SOAP) Subjective: Body ache, back pain, headache (mild) Objective: 10/11/19 17:30 Last Vital Signs Temp Pulse Resp BP Pulse Ox 97.2 F L 81 18 142/89 10/11/19 14:40 10/11/19 14:40 10/11/19 14:40 10/11/19 14:40 Elevated b/p 142/89: denies htn, on clonidine prn Laboratory Tests 10/09/19 10/09/19 10/09/19 12:05 12:05 12:05 WBC 5.2 RBC 4.45 Hgb 13.5 Hct 41.2 MCV 92.5 MCH 30.4 MCHC 32.9 RDW 14.0 Plt Count 160 D MPV 10.3 Sodium 143 Potassium 3.4 L Chloride 111 H Carbon Dioxide 19 L Anion Gap 14 BUN 17.0 Creatinine 1.0 Est GFR (CKD-EPI)AfAm 71.92 Est GFR (CKD-EPI)NonAf 62.05 Random Glucose 105 Calcium 9.4 Total Bilirubin 0.3 AST 15 ALT 26 Alkaline Phosphatase 97 Total Protein 7.4 Albumin 4.2 RPR Titer Nonreactive Labs reviewed: K 3.4 (supplemented) Assessment: 10/11/19 17:32 Withdrawal sxs Elevated b/p noted Plan: Continue detox Encouraged PO water intake Patient scheduled for discharge tomorrow Elevated b/p: denies HTN, monitor b/p, is on clonidine prn
[2019-10-11] MEDS: ROSUVASTATIN CA 20 MG TABLET (FP) PO SCH (22:08)
[2019-10-11] MEDS: CITALOPRAM HYDROBROMIDE 20 MG TABLET PO SCH (22:09)
[2019-10-11] MEDS: THIAMINE HCL 100 MG TABLET (FP) PO SCH (22:09)
[2019-10-11] MEDS: LIDOCAINE PATCH REMOVAL MC SCH (22:10)
[2019-10-11] MEDS: MELATONIN 5 MG TABLETS PO PRN (22:10)
[2019-10-11 23:30] VITALS: BP 142/96; PULSE 85; TEMP 97.2
[2019-10-12] MEDS ORDERED: METHADONE HCL 5 MG TABLET (FOR DETOX USE ONLY) PO ONE (06:00)
[2019-10-12] MEDS ORDERED: diazePAM 5 MG TABLET PO ONE ×2 (06:00)
== END 2019-10-12 06:45 | disposition home or self-care (01) | DRG 773 ==
LOC: YASAS 10:27 → Y6N 12:11
PROVIDERS: ADMIT Allergy & Immunology; ATTEND Allergy & Immunology
PROC: HZ2ZZZZ Detoxification Services for Substance Abuse Treatment (ICD-10-PCS; principal; 2019-10-09)
DX: F11.23 Opioid dependence with withdrawal (principal); F10.230 Alcohol dependence with withdrawal, uncomplicated; F17.210 Nicotine dependence, cigarettes, uncomplicated; F41.9 Anxiety disorder, unspecified; F32.9 Major depressive disorder, single episode, unspecified; F19.24 Other psychoactive substance dependence with psychoactive substance-induced mood disorder; E87.6 Hypokalemia; R03.0 Elevated blood-pressure reading, without diagnosis of hypertension; J44.9 Chronic obstructive pulmonary disease, unspecified; R00.0 Tachycardia, unspecified; Z88.0 Allergy status to penicillin
CPT/HCPCS: 36415; 80053; 85027; 86593